=== PATIENT | male | born 1980 | race Caucasian/White ===

== ENCOUNTER 2018-03-06 11:06 | Inpatient (IN) | payer SELFPAY ==
[2018-03-06] MEDS: ASPIRIN CHEWABLE 81 MG TABLET. PO (11:34)
[2018-03-06 11:36] LABS: ADD MAN DIFF? NO
[2018-03-06 11:38] LABS: BASO % 1 % (0-3); EOS # 0.1 x10^3/uL (0.0-0.7); EOS % 2 % (0-3); HEMOGLOBIN 14.9 g/dL (13.0-17.5); LYMPH # 1.8 x10^3/uL (1.0-4.8); LYMPH % 37 % (24-48); MEAN CORPUSCULAR HEMOGLOBIN 30 pg (25-35); MEAN CORPUSCULAR HGB CONC 35 g/dL (31-37); MEAN CORPUSCULAR VOLUME 86 fL (79-100); MONO # 0.2 x10^3/uL (0.0-1.1); MONO % 5 % (0-9); NEUT # 2.6 x10^3uL (1.8-7.7); NEUT % 55 % (31-73); PLATELET COUNT 189 x10^3/uL (140-400); RED BLOOD COUNT 4.99 x10^6/uL (4.30-5.70); RED CELL DISTRIBUTION WIDTH 13.5 % (11.5-14.5); WHITE BLOOD COUNT 4.8 x10^3/uL (4.0-11.0)
[2018-03-06 11:48] LABS: INR 1.1 (0.8-1.1); PROTHROMBIN TIME PATIENT 13.2 SEC (11.7-14.0)
[2018-03-06 11:54] LABS: ANION GAP 8 (6-14); BLOOD UREA NITROGEN 10 mg/dL (8-26); BUN/CREATININE RATIO 10 (6-20); CALCIUM 9.1 mg/dL (8.5-10.1); CARBON DIOXIDE 27 mmol/L (21-32); CHLORIDE 104 mmol/L (98-107); GLUCOSE 128 mg/dL (70-99); POTASSIUM 3.9 mmol/L (3.5-5.1); SODIUM 139 mmol/L (136-145)
[2018-03-06 11:55] LABS: ALBUMIN 3.5 g/dL (3.4-5.0); ALBUMIN/GLOBULIN RATIO 0.9 (1.0-1.7); ALK PHOS 88 U/L (46-116); ALT (SGPT) 48 U/L (16-63); AST (SGOT) 22 U/L (15-37); TOTAL BILIRUBIN 0.5 mg/dL (0.2-1.0); TOTAL PROTEIN 7.5 g/dL (6.4-8.2)
[2018-03-06 12:01] LABS: TROPONINI < 0.017 ng/mL (0.000-0.055)
[2018-03-06 12:03] LABS: NT-PRO BNP 43 pg/mL (0-124)
[2018-03-06] MEDS: traMADol 50 MG TABLET PO ×2 (14:31→21:20)
[2018-03-06] MEDS: ALPRAZolam 0.25 MG TABLET PO ×2 (14:31→22:50)
[2018-03-06] MEDS ORDERED: MORPHINE SULFATE 2 MG/ML DISP.SYRIN. IV (14:45)
[2018-03-06] MEDS ORDERED: traMADol 50 MG TABLET PO (14:45)
[2018-03-06] MEDS ORDERED: hydrALAZINE 20 MG/ML VIAL. IVP (14:45)
[2018-03-06] MEDS ORDERED: ACETAMINOPHEN 325 MG TABLET. PO (14:45)
[2018-03-06] MEDS ORDERED: ONDANSETRON PF 4 MG/2 ML VIAL. IV (14:45)
[2018-03-06] MEDS ORDERED: DOCUSATE SODIUM 100 MG CAPSULE. PO (14:45)
[2018-03-06] MEDS ORDERED: NITROGLYCERIN SUBLINGUAL 0.4 MG BOTTLE OF 25. SL (15:00)
[2018-03-06] MEDS ORDERED: ALBUTEROL SULFATE 2.5 MG/3 ML NEBU. NEB (15:00)
[2018-03-06 16:39] LABS: TROPONINI < 0.017 ng/mL (0.000-0.055)
[2018-03-06] MEDS: ENOXAPARIN 40 MG/0.4 ML SYRINGE. SQ (17:33)
[2018-03-06 20:29] LABS: TROPONINI < 0.017 ng/mL (0.000-0.055)
[2018-03-06 22:53] LABS: BARBITURATES NEG (NEG); BENZODIAZEPINES NEG (NEG); CANNABINOIDS NEG (NEG); COCAINE NEG (NEG); METHADONE NEG (NEG); OPIATES NEG (NEG); PHENCYCLIDINE NEG (NEG)
[2018-03-06 23:01] LABS: AMPHETAMINE/METHAMPHETAMINE NEG (NEG); ETHANOL, URINE NEG (NEG)
[2018-03-07] MEDS: traMADol 50 MG TABLET PO (05:58)
[2018-03-07 06:03] LABS: ADD MAN DIFF? NO
[2018-03-07 06:12] LABS: BASO % 1 % (0-3); EOS # 0.1 x10^3/uL (0.0-0.7); EOS % 2 % (0-3); HEMATOCRIT 41.1 % (39.0-53.0); HEMOGLOBIN 14.1 g/dL (13.0-17.5); LYMPH # 2.2 x10^3/uL (1.0-4.8); LYMPH % 40 % (24-48); MEAN CORPUSCULAR HEMOGLOBIN 30 pg (25-35); MEAN CORPUSCULAR HGB CONC 34 g/dL (31-37); MEAN CORPUSCULAR VOLUME 87 fL (79-100); MONO # 0.3 x10^3/uL (0.0-1.1); MONO % 6 % (0-9); NEUT # 2.9 x10^3uL (1.8-7.7); NEUT % 52 % (31-73); PLATELET COUNT 177 x10^3/uL (140-400); RED BLOOD COUNT 4.73 x10^6/uL (4.30-5.70); WHITE BLOOD COUNT 5.6 x10^3/uL (4.0-11.0)
[2018-03-07 06:33] LABS: ANION GAP 6 (6-14); BLOOD UREA NITROGEN 12 mg/dL (8-26); CALCIUM 8.8 mg/dL (8.5-10.1); CARBON DIOXIDE 29 mmol/L (21-32); CHLORIDE 104 mmol/L (98-107); CHOLESTEROL 180 mg/dL (0-200); CHOLESTEROL/HDL RATIO 5.8; CREATININE 1.1 mg/dL (0.7-1.3); GFR 76.2; GLUCOSE 124 mg/dL (70-99); HDLC 31 mg/dL (40-60); LDLC 123 mg/dL (0-100); NON-HDL CHOLESTEROL 149 mg/dL (0-129); POTASSIUM 4.1 mmol/L (3.5-5.1); SODIUM 139 mmol/L (136-145); TRIGLYCERIDES 129 mg/dL (0-150); VLDLC 26 mg/dL (0-40)
[2018-03-07 06:43] LABS: THYROID STIM HORMONE (TSH) 1.033 uIU/mL (0.358-3.74)
== END 2018-03-07 12:50 | disposition home or self-care (01) | DRG 880 ==
LOC: ER 11:06 → 2 SOUTH 11:45
DX: F41.9 Anxiety disorder, unspecified (principal); Z68.43 Body mass index [BMI] 50.0-59.9, adult; E66.01 Morbid (severe) obesity due to excess calories; Z83.3 Family history of diabetes mellitus
CPT/HCPCS: 36415; 71045; 80048; 80053; 80061; 80307; 83880; 84443; 84484; 85025; 85610; 93005; 94760; 96374; 99285; 99285-25; J1650; J2060

== ENCOUNTER 2019-04-28 22:51 | Emergency (ER) | payer OTHER ==
[~2019-04-28] VITALS: Ht 182.9 cm; Wt 172.4 kg
[~2019-04-28 22:51] MED LIST: ALPR0.5T PO; AMOX1TAB61 PO; BENZ100C PO
[2019-04-28 23:26] LABS: BASO % 0 % (0-3); EOS # 0.2 x10^3/uL (0.0-0.7); EOS % 2 % (0-3); HEMOGLOBIN 14.5 g/dL (13.0-17.5); LYMPH % 36 % (24-48); MEAN CORPUSCULAR HEMOGLOBIN 30 pg (25-35); MEAN CORPUSCULAR HGB CONC 34 g/dL (31-37); MEAN CORPUSCULAR VOLUME 87 fL (79-100); MONO # 0.5 x10^3/uL (0.0-1.1); MONO % 6 % (0-9); NEUT # 4.5 x10^3/uL (1.8-7.7); NEUT % 55 % (31-73); PLATELET COUNT 200 x10^3/uL (140-400); RED BLOOD COUNT 4.82 x10^6/uL (4.30-5.70); RED CELL DISTRIBUTION WIDTH 13.7 % (11.5-14.5); WHITE BLOOD COUNT 8.2 x10^3/uL (4.0-11.0)
[2019-04-28] MEDS ORDERED: ASPIRIN 325 MG TABLET PO ONE (23:30)
--- NOTE | 2019-04-28 23:30 | PHYS DOC ---
Past Medical History Past Medical History: No Pertinent History Additional Past Medical Histor: PT DENIES Past Surgical History: No Surgical History Additional Past Surgical Histo: PT DENIES Additional Information: Nonsmoker Alcohol Use: None Drug Use: None Adult General Chief Complaint Chief Complaint: CHEST PAIN-CARDIAC NATURE HPI HPI Mr. Sumner is a pleasant 38yo obese M w/ no significant PMH presents w/ left-sided chest pain that does not radiate. Pain is sharp, constant 8/10 but increases to 10/10 on deep inspiration. Patient was sitting watching the [employer] game when the pain came on suddenly. He took 2 aspirin prior to arrival by personal vehicle. Patient reports nausea w/ vomiting and mild dizziness and lightheadedness. Denies calf tenderness or prior hx of blood clots. Patient reports experiencing similar symptoms a year ago and was seen here but states that the pain is more severe this time; no cause was identified. Review of Systems Review of Systems Constitutional: Denies fever or chills Eyes: Denies redness or eye pain HENT: Denies nasal congestion or sore throat Respiratory: Reports shortness of breath. Denies cough. Cardiovascular: Reports chest pain or palpitations GI: Reports nausea and vomiting. Denies abdominal pain, diarrhea, constipation, or hematochezia. : Denies dysuria or hematuria Musculoskeletal: Denies back pain or joint pain Integument: Denies rash or skin lesions Neurologic: Denies headache, focal weakness or sensory changes Complete systems were reviewed and found to be within normal limits, except as documented in this note. Current Medications Current Medications Current Medications Medications (Trade) Dose Ordered Sig/[facility] Start Time Stop Time Status Last Admin Dose Admin Aspirin (Maggie Aspirin) 325 mg 1X ONCE 04/28/19 23:30 04/28/19 23:31 DC 04/28/19 23:34 325 MG Famotidine (Pepcid Vial) 20 mg 1X ONCE 04/29/19 00:30 04/29/19 00:31 DC 04/29/19 00:42 20 MG Ketorolac Tromethamine (Toradol 15mg Vial) 15 mg 1X ONCE 04/29/19 00:30 04/29/19 00:31 DC 04/29/19 00:42 15 MG Allergies Allergies Allergies Coded Allergies Type Severity Reaction Last Updated Verified No Known Drug Allergies 05/13/15 No Physical Exam Physical Exam Constitutional: obese, well developed, well nourished, no acute distress, non- toxic appearance HENT: Normocephalic, atraumatic, oropharynx moist Eyes: PERRL, EOMI, conjunctiva normal, no discharge Neck: Normal range of motion, no tenderness, supple, no cervical or supraclavicular LAD Cardiovascular: Heart rate normal, regular rhythm w/o gallops, rubs, or murmurs. UE radial pulses intact 2/4 b/l. Lungs & Thorax: Bilateral breath sounds clear to auscultation throughout, no wheezing Abdomen: Soft, no tenderness Skin: Warm, dry, no erythema, no rash Extremities: No tenderness, ROM intact, no edema Neurologic: Alert and oriented X 3, normal motor function, normal sensory function, no focal deficits noted Psychologic: Affect normal, judgement normal Current Patient Data Vital Signs Vital Signs Date Time Temp Pulse Resp B/P (MAP) Pulse Ox O2 Delivery O2 Flow Rate FiO2 04/28/19 23:00 98.4 93 20 147/84 (105) 100 Room Air 98.4 Lab Values Laboratory Tests Test 04/28/19 22:55 04/29/19 00:35 White Blood Count 8.2 x10^3/uL (4.0-11.0) Red Blood Count 4.82 x10^6/uL (4.30-5.70) Hemoglobin 14.5 g/dL (13.0-17.5) Hematocrit 42.0 % (39.0-53.0) Mean Corpuscular Volume 87 fL (79-100) Mean Corpuscular Hemoglobin 30 pg (25-35) Mean Corpuscular Hemoglobin Concent 34 g/dL (31-37) Red Cell Distribution Width 13.7 % (11.5-14.5) Platelet Count 200 x10^3/uL (140-400) Neutrophils (%) (Auto) 55 % (31-73) Lymphocytes (%) (Auto) 36 % (24-48) Monocytes (%) (Auto) 6 % (0-9) Eosinophils (%) (Auto) 2 % (0-3) Basophils (%) (Auto) 0 % (0-3) Neutrophils # (Auto) 4.5 x10^3/uL (1.8-7.7) Lymphocytes # (Auto) 3.0 x10^3/uL (1.0-4.8) Monocytes # (Auto) 0.5 x10^3/uL (0.0-1.1) Eosinophils # (Auto) 0.2 x10^3/uL (0.0-0.7) Basophils # (Auto) 0.0 x10^3/uL (0.0-0.2) Sodium Level 142 mmol/L (136-145) Potassium Level 3.7 mmol/L (3.5-5.1) Chloride Level 103 mmol/L (98-107) Carbon Dioxide Level 33 mmol/L (21-32) H Anion Gap 6 (6-14) Blood Urea Nitrogen 18 mg/dL (8-26) Creatinine 1.2 mg/dL (0.7-1.3) Estimated GFR (Cockcroft-Gault) 68.5 BUN/Creatinine Ratio 15 (6-20) Glucose Level 104 mg/dL (70-99) H Calcium Level 9.6 mg/dL (8.5-10.1) Magnesium Level 2.1 mg/dL (1.8-2.4) Total Bilirubin 0.4 mg/dL (0.2-1.0) Aspartate Amino Transferase (AST) 19 U/L (15-37) Alanine Aminotransferase (ALT) 44 U/L (16-63) Alkaline Phosphatase 106 U/L (46-116) Creatine Kinase 125 U/L (39-308) Creatine Kinase MB (Mass) 0.9 ng/mL (0.0-3.6) Creatine Kinase MB Relative Index 0.7 % (0-4) Troponin I Quantitative < 0.017 ng/mL (0.000-0.055) < 0.017 ng/mL (0.000-0.055) CI-Hna-Z-Type Natriuretic Peptide 17 pg/mL (0-124) Total Protein 8.3 g/dL (6.4-8.2) H Albumin 3.9 g/dL (3.4-5.0) Albumin/Globulin Ratio 0.9 (1.0-1.7) L Lipase 84 U/L (73-393) Laboratory Tests 04/28/19 22:55 Laboratory Tests 04/28/19 22:55 EKG EKG EKG obtained @ 2255 and read @ 2257. NSR w/o ST-elevation. 81 BPM.[] Radiology/Procedures Radiology/Procedures PROCEDURE: CHEST PA & LATERAL Exam: Chest 2 views INDICATION: Chest pain TECHNIQUE: Frontal and lateral views of the chest Comparisons: None FINDINGS: The cardiomediastinal silhouette and pulmonary vessels are within normal limits. The lung and pleural spaces are clear. IMPRESSION: No acute cardiopulmonary process. Electronically signed by: Quinton Hernandez MD (04/28/2019 11:35 PM) [facility] Course & Med Decision Making Course & Med Decision Making Pertinent Labs and Imaging studies reviewed. (See chart for details) Patient presented w/ chest pain. EKG NSR w/o ST-elevation. CXR stable. Labs obtained and posted to chart. Troponin x 2 negative. Patient with low risk factors for CAD. PERC negative. Patient stable for discharge with outpatient follow-up with PCP. Discussed findings and plan with patient, who acknowledges understanding and agreement. Dragon Disclaimer Dragon Disclaimer This electronic medical record was generated, in whole or in part, using a voice recognition dictation system. Departure Departure Impression: Primary Impression: Chest pain Disposition: HOME, SELF-CARE Condition: STABLE Referrals: NO PCP (PCP) Patient Instructions: Chest Pain (Nonspecific), [id number]-[id number] Scripts Famotidine (PEPCID) 20 Mg Tablet 20 MG PO BID, #14 TAB Prov: CHRISTOPHER VILLAFUERTE DO 04/29/19 The HEART Score for CP Pts HEART Score for Chest Pain: HEART Score for Chest Pain Response (Comments) Value History Slighlty/Non-Suspicious 0 ECG Normal 0 Age < 45 0 Risk Factors 1 or 2 Risk Factors 1 Troponin < Normal Limit 0 Total 1 Risk Factors: Risk Factors: obesity Risk Scores: Score 0 - 3: 2.5% MACE over next 6 weeks - Discharge Home Score 4 - 6: 20.3% MACE over next 6 weeks - Admit for Clinical Observation Score 7 - 10: 72.7% MACE over next 6 weeks - Early Invasive Strategies PERC Rule for PE PERC Rule for PE PERC Rule for PE Response (Comments) Value Age > 50: No 0 HR > 100: No 0 Sa02 on room air <95%: No 0 Unilateral leg swelling: No 0 Hemoptysis: No 0 Recent surgery or trauma: No 0 Prior PE or DVT: No 0 Hormone use: No 0 Total 0 Problem Qualifiers Primary Impression: Chest pain Chest pain type: unspecified Qualified Codes: R07.9 - Chest pain, unspecified CHRISTOPHER VILLAFUERTE DO Apr 28, 2019 23:30
--- NOTE | 2019-04-28 23:38 | RAD ---
Exam: Chest 2 views INDICATION: Chest pain TECHNIQUE: Frontal and lateral views of the chest Comparisons: None FINDINGS: The cardiomediastinal silhouette and pulmonary vessels are within normal limits. The lung and pleural spaces are clear. IMPRESSION: No acute cardiopulmonary process. Electronically signed by: Quinton Hernandez MD (04/28/2019 11:35 PM) [facility]
[2019-04-28 23:43] LABS: CALCIUM 9.6 mg/dL (8.5-10.1); CREATININE 1.2 mg/dL (0.7-1.3); GFR 68.5; POTASSIUM 3.7 mmol/L (3.5-5.1)
[2019-04-28 23:48] LABS: ALBUMIN 3.9 g/dL (3.4-5.0); ALBUMIN/GLOBULIN RATIO 0.9 (1.0-1.7); MAGNESIUM 2.1 mg/dL (1.8-2.4); TOTAL BILIRUBIN 0.4 mg/dL (0.2-1.0); TOTAL PROTEIN 8.3 g/dL (6.4-8.2)
[2019-04-29] MEDS ORDERED: KETOROLAC 15 MG/ML VIAL. IV ONE (00:30)
[2019-04-29] MEDS ORDERED: FAMOTIDINE 20 MG/2 ML VIAL IVP ONE (00:30)
[2019-04-29 01:00] VITALS: BP 130/81
[2019-04-29] MEDS ORDERED: FAMO-63 PO (01:05)
--- NOTE | 2019-04-29 07:27 | EKG ---
[facility] [address] [place] [address] Test Date: 2019-04-28 Test Time: 22:55:37 Pat Name: ABELARDO CORTEZ Department: Room: Gender: M Quality Controller: : 1980 Requested By: CHRISTOPHER VILLAFUERTE Order Number: [id number] Reading MD: Venkatesh Merrill MD Measurements Intervals [place] Rate: 80 P: 28 LA: 150 QRS: -18 QRSD: 96 T: 24 QT: 386 QTc: 448 Interpretive Statements SINUS RHYTHM LAD Electronically Signed On 05-05-2019 17:22:16 CDT by Venkatesh Merrill MD
== END 2019-04-29 01:24 | disposition home or self-care (01) ==
LOC: ER 22:51
DX: R07.89 Other chest pain (principal); R11.2 Nausea with vomiting, unspecified; R00.2 Palpitations; R42 Dizziness and giddiness; Z79.82 Long term (current) use of aspirin; E66.9 Obesity, unspecified; Z68.43 Body mass index [BMI] 50.0-59.9, adult
CPT/HCPCS: 36415; 71046; 80053; 82553; 83690; 83735; 83880; 84484; 85025; 93005; 96374; 96375; 99285; J1885; J3490

== ENCOUNTER 2019-06-20 17:00 | Emergency (ER) | payer OTHER ==
[~2019-06-20] VITALS: Ht 185.4 cm; Wt 158.8 kg
[~2019-06-20 17:00] MED LIST changes: +FAMO-63 PO
[2019-06-20 17:13] VITALS: BP 152/92
[2019-06-20] MEDS ORDERED: NEOMY/BACITR/POLYMYXIN OINT PACKET. TP ONE (17:15)
[2019-06-20] MEDS ORDERED: MUPI22OI2 TP (17:23)
[2019-06-20] MEDS ORDERED: AMOX1TAB61 PO (17:23)
--- NOTE | 2019-06-20 17:23 | PHYS DOC ---
Past Medical History Past Medical History: No Pertinent History Additional Past Medical Histor: PT DENIES Past Surgical History: No Surgical History Additional Past Surgical Histo: PT DENIES Alcohol Use: None Drug Use: None Adult General Chief Complaint Chief Complaint: ANIMAL BITE HPI HPI Patient is a 38 year old male who presents to the emergency department with complaints of redness, warmth, and swelling to bilateral hands after a stray cat that was in his basement his hands yesterday afternoon. Patient denies any weird behavior foaming at the mouth of the animal. Patient states he has not had a tetanus shot in over 5 years. He currently rates his pain in both of his hands a 6 out of 10 on the pain scale. Patient denies any numbness, tingling, weakness, or decreased range of motion of the affected hands. He denies any alleviating factors to his pain. Patient also denies any fever or drainage from his wounds. Review of Systems Review of Systems Constitutional: Denies fever or chills [] Musculoskeletal: See history of present illness Integument: Denies rash; see history of present illness Neurologic: Denies headache, focal weakness or sensory changes [] Complete systems were reviewed and found to be within normal limits, except as documented in this note. Current Medications Current Medications Current Medications Medications (Trade) Dose Ordered Sig/[facility] Start Time Stop Time Status Last Admin Dose Admin Neomycin/ Polymyxin/ Bacitracin (Triple Antibiotic Ointment) 1 pkt 1X ONCE 06/20/19 17:15 06/20/19 17:16 DC Allergies Allergies Allergies Coded Allergies Type Severity Reaction Last Updated Verified No Known Drug Allergies 05/13/15 No Physical Exam Physical Exam Constitutional: Well developed, well nourished, no acute distress, non-toxic appearance, obese. [] HENT: Normocephalic, atraumatic, bilateral external ears normal, nose normal. [] Eyes: PERRLA, EOMI, conjunctiva normal, no discharge. [] Neck: Normal range of motion, no stridor. [] Cardiovascular:Heart rate regular rhythm Lungs & Thorax: Respirations even and unlabored, no retractions, no respiratory distress Skin: Warm, dry; erythema, warmth, and scabbed puncture wounds to bilateral hands consistent with infected cat bites. Extremities: No cyanosis, no clubbing, ROM intact, bilateral hands tender to palpation with 1+ edema bilaterally Neurologic: Alert and oriented X 3, normal motor function, normal sensory function, no focal deficits noted. [] Psychologic: Affect normal, judgement normal, mood normal. [] Current Patient Data Vital Signs Vital Signs Date Time Temp Pulse Resp B/P (MAP) Pulse Ox O2 Delivery O2 Flow Rate FiO2 06/20/19 17:13 98.2 91 18 152/92 (112) 97 Room Air 98.2 EKG EKG [] Radiology/Procedures Radiology/Procedures [] Course & Med Decision Making Course & Med Decision Making Pertinent Labs and Imaging studies reviewed. (See chart for details) [] Dragon Disclaimer Dragon Disclaimer This electronic medical record was generated, in whole or in part, using a voice recognition dictation system. Departure Departure Impression: Primary Impression: Cat bite of hand Additional Impression: Infected cat bite of multiple sites of hand and fingers Disposition: 01 HOME, SELF-CARE Condition: STABLE Referrals: NO PCP (PCP) Patient Instructions: Animal Bite, [id number], VIS, Tetanus, Diphtheria (Td); Tetanus, Diphtheria, Pertussis (Tdap) - CDC Additional Instructions: Fill the prescriptions and take as directed. Follow up with your doctor in 1-2 d ays for wound recheck, return to the ER if fever develops, redness begins to streak up your arm, or symptoms worsen. Take tylenol or ibuprofen as needed for pain. Keep the affected areas clean and dry. Scripts Mupirocin (MUPIROCIN OINTMENT) 22 Gm Oint...g. 1 BITA TP TID for WOUND CARE for 7 Days, #1 TUBE 0 Refills Prov: JOCELINE CARO APRN 06/20/19 Amoxicillin/Potassium Clav (AUGMENTIN 875-125 TABLET) 1 Each Tablet 1 TAB PO BID, #20 TAB 0 Refills Prov: JOCELINE CARO DIRECT CHILL CASTING OPERATOR 06/20/19 Problem Qualifiers Primary Impression: Cat bite of hand Encounter type: initial encounter Laterality: unspecified laterality Qualified Codes: S61.459A - Open bite of unspecified hand, initial encounter; W55.01XA - Bitten by cat, initial encounter Additional Impression: Infected cat bite of multiple sites of hand and fingers Encounter type: initial encounter Laterality: unspecified laterality Qualified Codes: S61.459A - Open bite of unspecified hand, initial encounter; S61.259A - Open bite of unspecified finger without damage to nail, initial encounter; L08.9 - Local infection of the skin and subcutaneous tissue, unspecified; W55.01XA - Bitten by cat, initial encounter JOCELINE CARO APRN Jun 20, 2019 17:23
[2019-06-20] MEDS ORDERED: DIPHTH,PERTUSS(ACELL),TET TOX 0.5 ML DISP.SYRIN. VAX IM ONE (17:45)
== END 2019-06-20 17:39 | disposition home or self-care (01) ==
LOC: ER 17:00
DX: S61.452A Open bite of left hand, initial encounter (principal); S61.451A Open bite of right hand, initial encounter; L08.9 Local infection of the skin and subcutaneous tissue, unspecified; W55.01XA Bitten by cat, initial encounter; Y93.89 Activity, other specified; Y92.89 Other specified places as the place of occurrence of the external cause; Y99.8 Other external cause status
CPT/HCPCS: 90471; 90715; 99283

== ENCOUNTER → 2020-04-13 | Outpatient (CLI) | payer OTHER ==
[~2020-04-13] MED LIST changes: +MUPI22OI2 TP
--- NOTE | 2020-04-13 16:59 | RAD ---
EXAM: Left knee, 3 views. HISTORY: Pain. COMPARISON: None. FINDINGS: 3 views of the left knee are obtained. There is mild medial compartment spurring. There is no fracture, dislocation or subluxation. There is trace joint fluid without a significant effusion. IMPRESSION: Mild osteoarthritis of the left knee. Electronically signed by: Tika Crane MD (04/13/2020 4:56 PM) [id number]
== END | disposition home or self-care (01) ==
LOC: RAD 16:30
PROVIDERS: ATTEND Physician Assistant Medical
DX: M17.12 Unilateral primary osteoarthritis, left knee (principal); M25.462 Effusion, left knee; M76.892 Other specified enthesopathies of left lower limb, excluding foot; G89.29 Other chronic pain
CPT/HCPCS: 73562

== ENCOUNTER 2020-09-01 14:08 | Emergency (ER) | payer OTHER ==
[~2020-09-01] VITALS: Ht 185.4 cm; Wt 182.0 kg
--- NOTE | 2020-09-01 14:18 | PHYS DOC ---
Past Medical History Past Medical History: No Pertinent History Additional Past Medical Histor: PT DENIES Past Surgical History: No Surgical History Additional Past Surgical Histo: PT DENIES Smoking Status: Never Smoker Alcohol Use: None Drug Use: None General Adult EDM: Chief Complaint: LOWER EXT PAIN HPI: HPI: Patient is a 39 year old male who presents with a 1 week history of left knee p ain that is gotten worse over the last 24 hours. Patient describes throbbing pain in the left knee that radiates down the left calf. Pain is worse with walking and better with rest. Pain is 8 out of 10 at its most severe. Patient denies any recent trauma. Patient denies any fever, chills, cough or shortness of breath. Patient states he had arthritis in that knee but is never hurt like this. Review of Systems: Review of Systems: Constitutional: Denies fever or chills. [] Eyes: Denies change in visual acuity. [] HENT: Denies nasal congestion or sore throat. [] Respiratory: Denies cough or shortness of breath. [] Cardiovascular: Denies chest pain or edema. [] GI: Denies abdominal pain, nausea, vomiting, bloody stools or diarrhea. [] : Denies dysuria. [] Musculoskeletal: Denies back pain but has left knee pain Integument: Denies rash. [] Neurologic: Denies headache, focal weakness or sensory changes. [] Endocrine: Denies polyuria or polydipsia. [] Lymphatic: Denies swollen glands. [] Psychiatric: Denies depression or anxiety. [] Heart Score: Risk Factors: Risk Factors: DM, Current or recent (<one month) smoker, HTN, HLP, family history of CAD, obesity. Risk Scores: Score 0 - 3: 2.5% MACE over next 6 weeks - Discharge Home Score 4 - 6: 20.3% MACE over next 6 weeks - Admit for Clinical Observation Score 7 - 10: 72.7% MACE over next 6 weeks - Early Invasive Strategies Allergies: Allergies: Allergies Coded Allergies Type Severity Reaction Last Updated Verified No Known Drug Allergies 05/13/15 No Physical Exam: PE: Constitutional: Well developed, well nourished, no acute distress, non-toxic appearance. [] HENT: Normocephalic, atraumatic, bilateral external ears normal, no trismus nose normal. [] Eyes: PERRLA, EOMI, conjunctiva normal, no discharge. [] Neck: Normal range of motion, no tenderness, supple, no stridor. [] Cardiovascular:Heart rate regular rhythm, peripheral pulses are intact, cap refills less than 2 seconds Lungs & Thorax: Bilateral breath sounds clear, no respiratory distress Abdomen:soft, no tenderness, no masses, no pulsatile masses. [] Skin: Warm, dry, no erythema, no rash. [] Back: No tenderness, no CVA tenderness. [] Extremities: Mild tenderness and mild swelling to the left knee, no warmth or erythema. Mild tenderness to left calf. Neurovascular intact distally. No cyanosis or clubbing. Neurologic: Alert and oriented X 3, normal motor function, normal sensory function, no focal deficits noted. [] Psychologic: Affect normal, judgement normal, mood normal. [] EKG: EKG: [] Radiology/Procedures: Radiology/Procedures: [][place] [address] IMAGING REPORT Signed PATIENT: ABELARDO CORTEZ ACCOUNT: [id number] : 1980 LOCATION: ER AGE: 39 SEX: M EXAM STATUS: REG ER ORD. PHYSICIAN: GERMANIA FISCHER MD REASON: left knee pain, no known injury PROCEDURE: KNEE LEFT 3V Examination: XR KNEE _3 VIEWS_LT History: Reason: left knee pain, no known injury / Spl. Instructions: / History: Comparison/Correlation: None Findings: 3 images of the left knee were obtained. Joint spaces are unremarkable. Minimal spurring identified. No fracture or bone destruction. No significant joint effusion. Impression: No suspicious process. Electronically signed by: Jean Kelley MD (09/01/2020 3:29 PM) [id number] DICTATED and SIGNED BY: JEAN KELLEY MD DATE: 09/01/20 [id number] [id number] IMAGING REPORT Signed PATIENT: ABELARDO CROTEZ ACCOUNT: [id number] : 1980 LOCATION: ER AGE: 39 SEX: M EXAM STATUS: REG ER ORD. PHYSICIAN: GERMANIA FISCHER MD REASON: left leg pain PROCEDURE: VENOUS LOWER EXTREMITY LEFT Left lower extremity venous duplex study 09/01/2020 Clinical History: Left leg pain. Technique: Using a combination of real time ultrasound imaging and color-flow and pulse Doppler imaging techniques along with graded compression and augmentation, duplex evaluation of the deep venous system of the the left lower extremity was performed. Multiple images were obtained. Findings: There is no sonographic evidence of deep venous thrombosis involving the visualized deep venous structures of the left lower extremity. A oval-shaped anechoic structure is seen in the left popliteal region which measures 7.1 cm i n size. This is consistent with a popliteal cyst. Impression: There is no sonographic evidence of deep venous thrombosis involving the visualized deep venous structures of the left lower extremity. Electronically signed by: Sergio Cabral MD (09/01/2020 4:23 PM) [id number] DICTATED and SIGNED BY: SERGIO CABRAL MD DATE: 09/01/20 [id number] 0 Course & Med Decision Making: Course & Med Decision Making Pertinent Labs and Imaging studies reviewed. (See chart for details) [] 39-year-old male presents with left leg and calf pain. X-ray of the knee shows arthritis, ultrasound done to rule out DVT which was negative. There is no evidence of septic arthritis or inflammatory arthritis. Patient was placed on anti-inflammatories for pain. Patient was given Garrett wrap and follow-up with orthopedist. Dragon Disclaimer: Caroline Disclaimer: This electronic medical record was generated, in whole or in part, using a voice recognition dictation system. Departure Departure Impression: Primary Impression: Left leg pain Additional Impression: Arthritis of left knee Disposition: 01 DC HOME SELF CARE/HOMELESS Condition: STABLE Referrals: AUDRA VIDALES PA-C (PCP) SARMAD MUELLER MD 2-3 days Patient Instructions: Arthritis, Nonspecific Additional Instructions: naproEMERGENCY DEPARTMENT GENERAL DISCHARGE INSTRUCTIONS THANK YOU for coming to [facility] Emergency Department (ED) today and trusting us with your care. We trust that you had a positive experience in our Emergency Department. If you wish to speak to the department Management you can contact the upholstery department supervisor at . YOUR FOLLOW UP INSTRUCTIONS ARE FOLLOWS: Do you have a private doctor? If you do not have a private doctor, please ask for a resource list of physicians or clinics that may be able to assist you with follow up care. The Emergency Physician has interpreted your x-rays. The X-ray specialist will also review them. If there is a change in the findings you will be notified in 48 hours when at all possible. A lab test or lab culture may have been done, your results will be reviewed and you will be notified if you need a change in treatment. ADDITIONAL INSTRUCTIONS AND INFORMATION Your care today has been supervised by a physician who is specially trained in emergency care. Many problems require more than one evaluation for a complete diagnosis and treatment. We recommend that you schedule your follow up appointment as recommended to ensure complete treatment of your illness or injury. If you are unable to obtain follow up care and continue to have a problem, or if your condition worsens we recommend that you return to the ED. We are not able to safely determine your condition over the phone nor are we able to give sound medical advice over the phone. For these safety reasons, if you call for medical advice we will ask you to come to the ED for further evaluation If you have any questions regarding these discharge instructions please call the ED at . SAFETY INFORMATION In the interest of safety, wellness, and injury prevention; we encourage you to wear your seatbelt, if you smoke; quit smoking, and we encourage your family to use protective helmet for bicycling and other sporting events that present an increased risk for head injury. IF YOUR SYMPTOMS WORSEN OR NEW SYMPTOMS DEVELOP, OR YOU HAVE CONCERNS ABOUT YOUR CONDITION; OR IF YOUR CONDITION WORSENS WHILE YOU ARE WAITING FOR YOUR FOLLOW UP APPOINTMENT; EITHER CONTACT YOUR PRIMARY CARE DOCTOR, THE PHYSICIAN WHOSE NAME AND NUMBER YOU WERE GIVEN, OR RETURN TO THE ED IMMEDIATELY. Scripts Hydrocodone/Apap 5-325 (NORCO 5-325 TABLET) 1 Each Tablet 1-2 EACH PO PRN Q6HRS PRN for PAIN, #12 as needed for pain Prov: GERMANIA FISCHER MD 09/01/20 Naproxen (NAPROSYN) 500 Mg Tablet 1 TAB PO BID for pain for 30 Days, #60 TAB 0 Refills Prov: GERMANIA FISCHER MD 09/01/20 GERMANIA FISCHER MD Sep 01, 2020 14:18
--- NOTE | 2020-09-01 15:31 | RAD ---
Examination: XR KNEE _3 VIEWS_LT History: Reason: left knee pain, no known injury / Spl. Instructions: / History: Comparison/Correlation: None Findings: 3 images of the left knee were obtained. Joint spaces are unremarkable. Minimal spurring id entified. No fracture or bone destruction. No significant joint effusion. Impression: No suspicious process. Electronically signed by: Jean Mccullough MD (09/01/2020 3:29 PM) [id number]
--- NOTE | 2020-09-01 16:25 | RAD ---
Left lower extremity venous duplex study 09/01/2020 Clinical History: Left leg pain. Technique: Using a combination of real time ultrasound imaging and color-flow and pulse Doppler imagi ng techniques along with graded compression and augmentation, duplex evaluation of the deep venous sy stem of the the left lower extremity was performed. Multiple images were obtained. Findings: There is no sonographic evidence of deep venous thrombosis involving the visualized deep ve nous structures of the left lower extremity. A oval-shaped anechoic structure is seen in the left pop liteal region which measures 7.1 cm in size. This is consistent with a popliteal cyst. Impression: There is no sonographic evidence of deep venous thrombosis involving the visualized deep venous structures of the left lower extremity. Electronically signed by: Sergio Cabral MD (09/01/2020 4:23 PM) [id number]
[2020-09-01] MEDS ORDERED: NAPR-683 PO (16:39)
[2020-09-01] MEDS ORDERED: HYDR-3164 PO (16:39)
[2020-09-01 17:20] VITALS: BP 160/86
== END 2020-09-01 17:20 | disposition home or self-care (01) ==
LOC: ER 14:08
DX: M17.12 Unilateral primary osteoarthritis, left knee (principal)
CPT/HCPCS: 73562; 93971; 99284